=== PATIENT | female | born 1950 | race Caucasian/White ===

== ENCOUNTER 2016-05-12 13:34 | Emergency (ER) | payer MEDICARE, MEDICAID | END 2016-05-12 15:30 | disposition home or self-care (01) | LOC: ER 13:34 | CPT/HCPCS: 70450 ==

== ENCOUNTER 2016-05-21 21:20 | Inpatient (IN) | payer MEDICARE, MEDICAID ==
[~2016-05-21] VITALS: Ht 162.6 cm; Wt 91.8 kg
[2016-05-22] MEDS ORDERED: SODIUM CHLORIDE 0.45% 1,000 ML IV SCH (00:47)
[2016-05-22] MEDS ORDERED: SODIUM CHLORIDE 0.9% 100 ML IV ONE (00:54)
[2016-05-22] MEDS ORDERED: CEFTRIAXONE 1 GM VIAL ONE (00:54)
[2016-05-22] MEDS ORDERED: SODIUM CHLORIDE 0.9% 1,000 ML ONE (00:54)
[2016-05-22 02:00] VITALS: BP_SYST 142; RESP 16; TEMP 97.7
[2016-05-22] MEDS ORDERED: ACETAMINOPHEN 325 MG TAB PO PRN (04:40)
[2016-05-22 07:41] VITALS: Ht 162.6 cm; Wt 91.8 kg
[2016-05-22] MEDS ORDERED: DEXTROSE 50% 50 ML ONE (08:03)
[2016-05-22] MEDS ORDERED: DEXTROSE 50% SYRINGE 50 ML IV ONE (08:20)
[2016-05-22 08:25] VITALS: BP_SYST 132; RESP 20; TEMP 97.2
[2016-05-22] MEDS: DEXTROSE 5% SALINE 0.9% 1,000 ML IV SCH ×2 (08:34→21:35)
[2016-05-22] MEDS: POLYETHYLENE GLYCOL 17 GM PACKET PO SCH ×2 (09:55→21:29)
[2016-05-22] MEDS ORDERED: OXYCODONE/APAP 5/325 TAB PO PRN (09:55)
[2016-05-22] MEDS: LEVOTHYROXINE 0.2 MG TAB PO SCH (09:56)
[2016-05-22] MEDS: PSYLLIUM PO SCH (09:57)
[2016-05-22 11:51] VITALS: BP_SYST 132; RESP 16; TEMP 96.7
[2016-05-22] MEDS: PAROXETINE HCL 20 MG TAB PO SCH (11:57)
[2016-05-22] MEDS: ASPIRIN EC 81 MG TAB PO SCH (11:58)
[2016-05-22] MEDS: PENTOSAN 100 MG CAP PO SCH ×3 (11:58→21:30)
[2016-05-22] MEDS: PRIMIDONE 50 MG TAB PO SCH ×3 (11:58→21:30)
[2016-05-22] MEDS: amLODIPine 5 MG TAB PO SCH (12:18)
[2016-05-22 15:27] VITALS: BP_SYST 138; RESP 16; TEMP 98.6
[2016-05-22 20:45] VITALS: BP_SYST 130; RESP 18; TEMP 98.3
[2016-05-22] MEDS: Atorvastatin 20 MG TAB PO SCH (21:30)
[2016-05-23] MEDS: CEFTRIAXONE 1 GM in SODIUM CHLORIDE 0.9% 50 ML IV SCH (00:17)
[2016-05-23 00:22] VITALS: BP_SYST 126; RESP 18; TEMP 98.5
[2016-05-23 05:26] VITALS: BP_SYST 130; RESP 20; TEMP 98.1
[2016-05-23] MEDS: DEXTROSE 5% SALINE 0.9% 1,000 ML IV SCH (05:45)
[2016-05-23] MEDS: LEVOTHYROXINE 0.2 MG TAB PO SCH (06:50)
[2016-05-23 07:34] VITALS: BP_SYST 138; RESP 18; TEMP 98
[2016-05-23] MEDS: PSYLLIUM PO SCH (09:40)
[2016-05-23] MEDS: ASPIRIN EC 81 MG TAB PO SCH (09:40)
[2016-05-23] MEDS: PRIMIDONE 50 MG TAB PO SCH ×3 (09:40→20:41)
[2016-05-23] MEDS: PAROXETINE HCL 20 MG TAB PO SCH (09:41)
[2016-05-23] MEDS: amLODIPine 5 MG TAB PO SCH (09:41)
[2016-05-23] MEDS: PENTOSAN 100 MG CAP PO SCH ×3 (09:41→20:41)
[2016-05-23] MEDS: POLYETHYLENE GLYCOL 17 GM PACKET PO SCH ×2 (09:41→20:41)
[2016-05-23 10:25] VITALS: BP_SYST 136; RESP 16; TEMP 98.3
[2016-05-23 14:50] VITALS: BP_SYST 130; RESP 18; TEMP 98.4
[2016-05-23] MEDS: Atorvastatin 20 MG TAB PO SCH (20:41)
[2016-05-23 20:48] VITALS: BP_SYST 138; RESP 18; TEMP 98.7
[2016-05-24] VITALS (7 sets, daily range): BP systolic 118–142; RESP 18–20; TEMP 98.2–99.6
[2016-05-24] MEDS: CEFTRIAXONE 1 GM in SODIUM CHLORIDE 0.9% 50 ML IV SCH (00:22)
[2016-05-24] MEDS: LEVOTHYROXINE 0.2 MG TAB PO SCH (06:39)
[2016-05-24] MEDS ORDERED: GLUCAGON 1 MG VIAL IM PRN (08:15)
[2016-05-24] MEDS ORDERED: DEXTROSE 50% SYRINGE 50 ML IV PRN (08:15)
[2016-05-24] MEDS: PSYLLIUM PO SCH (09:00)
[2016-05-24] MEDS: POLYETHYLENE GLYCOL 17 GM PACKET PO SCH ×2 (09:00→21:34)
[2016-05-24] MEDS: ASPIRIN EC 81 MG TAB PO SCH (09:22)
[2016-05-24] MEDS: PENTOSAN 100 MG CAP PO SCH ×3 (09:22→21:34)
[2016-05-24] MEDS: PRIMIDONE 50 MG TAB PO SCH ×3 (09:23→21:34)
[2016-05-24] MEDS: amLODIPine 5 MG TAB PO SCH (09:23)
[2016-05-24] MEDS: PAROXETINE HCL 20 MG TAB PO SCH (09:23)
[2016-05-24] MEDS ORDERED: MICONAZOLE 2% PWD TOPICAL SCH (12:55)
[2016-05-24] MEDS: MICONAZOLE 2% PWD TOPICAL SCH (13:36)
[2016-05-24] MEDS: Atorvastatin 20 MG TAB PO SCH (21:34)
[2016-05-25] VITALS (7 sets, daily range): BP systolic 132–152; RESP 16–23; TEMP 97.6–98.9
[2016-05-25] MEDS: CEFTRIAXONE 1 GM in SODIUM CHLORIDE 0.9% 50 ML IV SCH ×2 (00:14→23:03)
[2016-05-25] MEDS ORDERED: SALINE FLUSH 10 ML FLUSH PRN (01:15)
[2016-05-25] MEDS ORDERED: NEB-ALBUTEROL 2.5 MG/3 ML INH ONE (05:18)
[2016-05-25] MEDS: SODIUM CHLORIDE 0.9% FLUSH BAG 500 ML IV SCH (05:43)
[2016-05-25] MEDS: LEVOTHYROXINE 0.2 MG TAB PO SCH (05:43)
[2016-05-25] MEDS ORDERED: Furosemide 40 MG/4 ML VIAL ONE (05:49)
[2016-05-25] MEDS ORDERED: Furosemide 20 MG/2 ML VIAL IV ONE (05:50)
[2016-05-25] MEDS ORDERED: MISSING DOSE XX ONE ×2 (09:20→16:25)
[2016-05-25] MEDS: SALINE FLUSH 10 ML FLUSH SCH ×2 (09:21→21:55)
[2016-05-25] MEDS: SPIRONOLACTONE 25 MG TAB PO SCH ×2 (09:22→21:55)
[2016-05-25] MEDS: amLODIPine 5 MG TAB PO SCH (09:22)
[2016-05-25] MEDS: ASPIRIN EC 81 MG TAB PO SCH (09:22)
[2016-05-25] MEDS: PENTOSAN 100 MG CAP PO SCH ×3 (09:22→21:55)
[2016-05-25] MEDS: MODAFINIL 100 MG TAB PO SCH (09:22)
[2016-05-25] MEDS: PRIMIDONE 50 MG TAB PO SCH ×3 (09:22→21:55)
[2016-05-25] MEDS: POLYETHYLENE GLYCOL 17 GM PACKET PO SCH ×2 (09:22→21:56)
[2016-05-25] MEDS: PAROXETINE HCL 20 MG TAB PO SCH (09:22)
[2016-05-25] MEDS: PSYLLIUM PO SCH (09:22)
[2016-05-25] MEDS: BUMETANIDE 1 MG TAB PO SCH ×2 (10:52→17:20)
[2016-05-25] MEDS: MICONAZOLE 2% PWD TOPICAL SCH (10:53)
[2016-05-25] MEDS: Atorvastatin 20 MG TAB PO SCH (21:55)
[2016-05-26] VITALS (7 sets, daily range): BP systolic 108–150; RESP 16–20; TEMP 97.7–99.1
[2016-05-26] MEDS: LEVOTHYROXINE 0.2 MG TAB PO SCH (06:31)
[2016-05-26] MEDS: SODIUM CHLORIDE 0.9% FLUSH BAG 500 ML IV SCH (06:32)
[2016-05-26] MEDS ORDERED: MISSING DOSE XX ONE ×2 (08:30→08:40)
[2016-05-26] MEDS: POLYETHYLENE GLYCOL 17 GM PACKET PO SCH ×2 (09:00→21:00)
[2016-05-26] MEDS: PSYLLIUM PO SCH (09:00)
[2016-05-26] MEDS: SALINE FLUSH 10 ML FLUSH SCH ×2 (09:05→22:44)
[2016-05-26] MEDS: SPIRONOLACTONE 25 MG TAB PO SCH ×2 (09:06→22:44)
[2016-05-26] MEDS: PENTOSAN 100 MG CAP PO SCH ×3 (09:07→22:44)
[2016-05-26] MEDS: BUMETANIDE 1 MG TAB PO SCH ×2 (09:07→17:15)
[2016-05-26] MEDS: amLODIPine 5 MG TAB PO SCH (09:07)
[2016-05-26] MEDS: MODAFINIL 100 MG TAB PO SCH (09:07)
[2016-05-26] MEDS: PRIMIDONE 50 MG TAB PO SCH ×3 (09:08→22:43)
[2016-05-26] MEDS: PAROXETINE HCL 20 MG TAB PO SCH (09:08)
[2016-05-26] MEDS: ASPIRIN EC 81 MG TAB PO SCH (09:09)
[2016-05-26] MEDS: MICONAZOLE 2% PWD TOPICAL SCH (09:10)
[2016-05-26] MEDS: CEFTRIAXONE 1 GM in SODIUM CHLORIDE 0.9% 50 ML IV SCH (22:40)
[2016-05-26] MEDS: Atorvastatin 20 MG TAB PO SCH (22:43)
[2016-05-27] VITALS (8 sets, daily range): BP systolic 106–132; RESP 16–20; TEMP 98.2–98.8
[2016-05-27] MEDS: SODIUM CHLORIDE 0.9% FLUSH BAG 500 ML IV SCH (06:10)
[2016-05-27] MEDS: MODAFINIL 100 MG TAB PO SCH (08:31)
[2016-05-27] MEDS: ASPIRIN EC 81 MG TAB PO SCH (08:31)
[2016-05-27] MEDS: PRIMIDONE 50 MG TAB PO SCH ×3 (08:31→21:44)
[2016-05-27] MEDS: PENTOSAN 100 MG CAP PO SCH ×3 (08:31→21:44)
[2016-05-27] MEDS: LEVOTHYROXINE 0.2 MG TAB PO SCH (08:31)
[2016-05-27] MEDS: SPIRONOLACTONE 25 MG TAB PO SCH ×2 (08:31→21:55)
[2016-05-27] MEDS: PAROXETINE HCL 20 MG TAB PO SCH (08:31)
[2016-05-27] MEDS: MICONAZOLE 2% PWD TOPICAL SCH (08:32)
[2016-05-27] MEDS: PSYLLIUM PO SCH (08:32)
[2016-05-27] MEDS: BUMETANIDE 1 MG TAB PO SCH ×2 (08:32→17:29)
[2016-05-27] MEDS: POLYETHYLENE GLYCOL 17 GM PACKET PO SCH ×2 (08:32→21:44)
[2016-05-27] MEDS: SALINE FLUSH 10 ML FLUSH SCH ×2 (08:32→21:45)
[2016-05-27] MEDS: amLODIPine 5 MG TAB PO SCH (08:32)
[2016-05-27] MEDS ORDERED: MISSING DOSE XX ONE ×3 (14:00→21:30)
[2016-05-27] MEDS: Atorvastatin 20 MG TAB PO SCH (21:44)
[2016-05-28] VITALS (8 sets, daily range): BP systolic 108–124; RESP 18–21; TEMP 97.5–98.8
[2016-05-28] MEDS: CEFTRIAXONE 1 GM in SODIUM CHLORIDE 0.9% 50 ML IV SCH (00:31)
[2016-05-28] MEDS: SODIUM CHLORIDE 0.9% FLUSH BAG 500 ML IV SCH (06:11)
[2016-05-28] MEDS: LEVOTHYROXINE 0.2 MG TAB PO SCH (06:12)
[2016-05-28] MEDS: SALINE FLUSH 10 ML FLUSH SCH (08:25)
[2016-05-28] MEDS: amLODIPine 5 MG TAB PO SCH (08:26)
[2016-05-28] MEDS: SPIRONOLACTONE 25 MG TAB PO SCH (08:26)
[2016-05-28] MEDS: PRIMIDONE 50 MG TAB PO SCH (08:26)
[2016-05-28] MEDS: BUMETANIDE 1 MG TAB PO SCH (08:27)
[2016-05-28] MEDS: ASPIRIN EC 81 MG TAB PO SCH (08:27)
[2016-05-28] MEDS: PAROXETINE HCL 20 MG TAB PO SCH (08:27)
[2016-05-28] MEDS: MODAFINIL 100 MG TAB PO SCH (08:27)
[2016-05-28] MEDS: PENTOSAN 100 MG CAP PO SCH (08:27)
[2016-05-28] MEDS: PSYLLIUM PO SCH (08:27)
[2016-05-28] MEDS: POLYETHYLENE GLYCOL 17 GM PACKET PO SCH (08:28)
[2016-05-28] MEDS ORDERED: MICONAZOLE 2% PWD TOPICAL SCH (09:00)
== END 2016-05-28 16:13 | DRG 689 ==
LOC: ENRESERVTM → ENRESERVDT → ER 21:20 → EMR 21:21 → 4NT 05-22 01:00 → OBSVTOIN 05-22 22:43 → ENPENDDIS 05-22 22:43
PROVIDERS: ADMIT Internal Medicine; ATTEND Internal Medicine
DX: N39.0 Urinary tract infection, site not specified (principal); G93.41 Metabolic encephalopathy; E11.649 Type 2 diabetes mellitus with hypoglycemia without coma; I11.0 Hypertensive heart disease with heart failure; I50.30 Unspecified diastolic (congestive) heart failure; B96.20 Unspecified Escherichia coli [E. coli] as the cause of diseases classified elsewhere; J84.10 Pulmonary fibrosis, unspecified; Z95.0 Presence of cardiac pacemaker; J44.9 Chronic obstructive pulmonary disease, unspecified; E86.0 Dehydration; I25.10 Atherosclerotic heart disease of native coronary artery without angina pectoris; G47.33 Obstructive sleep apnea (adult) (pediatric); Z79.82 Long term (current) use of aspirin; Z79.4 Long term (current) use of insulin
CPT/HCPCS: 36415; 36600; 70450; 71010; 80048; 80053; 81001; 82803; 82947; 84484; 85025; 87077; 87088; 87186; 94640; 94660; 96374